=== PATIENT | female | born 1975 | race Caucasian/White ===

== ENCOUNTER 2025-07-25 08:48 | Emergency (ER) | payer BC ==
[~2025-07-25] VITALS: Ht 175.3 cm; Wt 61.2 kg
[2025-07-25] MEDS ORDERED: ONDANSETRON HCL/PF 4 MG/2 ML VIAL ONE ×2 (09:40→16:07)
[2025-07-25] MEDS ORDERED: MORPHINE SULFATE INJ 4 MG/ML DISP.SYRIN ONE ×2 (09:41→13:03)
[2025-07-25] MEDS: IV NS 0.9% 1,000 ML BAG IV ONE (09:42)
[2025-07-25] MEDS: MORPHINE SULFATE INJ 2 MG/ML DISP.SYRIN IV ONE ×2 (09:43→13:23)
[2025-07-25] MEDS: ONDANSETRON HCL/PF 4 MG/2 ML VIAL IVP ONE (09:43)
[2025-07-25 10:04] LABS: PLATELET COUNT (AUTO) 93 K/uL (150-450); RED BLOOD CELL COUNT(AUTO) 3.81 MIL/uL (4.0-5.2); RED CELL DISTRIBUTION WIDTH 14.5 % (11.5-15.0); WHITE BLOOD COUNT (AUTO) 9.5 K/uL (4.3-11.0)
[2025-07-25 10:11] LABS: CALCIUM, SERUM 8.3 mg/dL (8.5-10.1); CREATININE 0.7 mg/dL (0.6-1.3); SODIUM SERUM 139 mmol/L (136-145); UREA NITROGEN, BLOOD 19 mg/dL (7-18)
[2025-07-25 10:18] LABS: ASPARTATE AMINOTRANSFERASE 24 U/L (15-37); INR 3.84 (0.91-1.10); TOTAL PROTEIN, SERUM 6.6 g/dL (6.4-8.2)
[2025-07-25 10:21] LABS: LACTIC ACID 2.1 mmol/L (0.4-2.0)
[2025-07-25] MEDS ORDERED: IOHEXOL-350 100 ML VIAL IV ONE (10:34)
[2025-07-25] MEDS ORDERED: IV NS 0.9% 250 ML IV ONE (10:35)
[2025-07-25] MEDS ORDERED: CT SWABBABLE VALVE TRANS SET 1 EA INFUS.SET MC ONE (10:35)
[2025-07-25 11:45] LABS: LYMPHOCYTES % (MANUAL) 11 % (16-48); MONOCYTES % (MANUAL) 6 % (0-11.0); NEUTROPHILS % (MANUAL) 83 (42-76); PLATELET ESTIMATE DECREASED
[2025-07-25] MEDS ORDERED: HYDROMORPHONE 1 MG/1 ML DISP.SYRIN ONE ×2 (13:26→16:58)
[2025-07-25] MEDS: HYDROMORPHONE 1 MG/1 ML DISP.SYRIN IV ONE ×2 (13:27→17:00)
[2025-07-25] MEDS: ESMOLOL IVPB PREMIX 2,500 MG in PREMIX 1 EA IV PRN (14:30)
[2025-07-25] MEDS: ONDANSETRON HCL/PF 4 MG/2 ML VIAL IV ONE (16:08)
[2025-07-25 17:40] VITALS: BP 111/69; TEMP 98.2; O2SAT 98
== END 2025-07-25 18:19 | disposition short-term general hospital (02) ==
LOC: ER 09:52
DX: I71.02 Dissection of abdominal aorta (principal); Z79.01 Long term (current) use of anticoagulants; Z86.79 Personal history of other diseases of the circulatory system
CPT/HCPCS: 99291; 75635; 96365; 96375; 96361; 99292 ×2; 71275; 85027; 80048; 83605 ×2; 83690; 80076; 85007; 36415; 85730; 96376; J2270; J2405 ×2; J7030; J7050; A4216; J3490; Q9967; J1171 ×2